=== PATIENT | female | born 1975 | race Caucasian/White ===

== ENCOUNTER 2016-08-23 20:48 | Emergency (ER) | payer OTHER | END 2016-08-23 23:05 | disposition home or self-care (01) | LOC: FER 20:48 | DX: G43.909 Migraine, unspecified, not intractable, without status migrainosus (principal); F17.210 Nicotine dependence, cigarettes, uncomplicated; Z88.1 Allergy status to other antibiotic agents | CPT/HCPCS: J1885; J2405; J2765 ==

== ENCOUNTER 2016-12-04 19:05 | Emergency (ER) | payer OTHER ==
[2016-12-04 20:26] LABS: BASOPHIL 0.1 % (0-2); EOSINOPHIL 0.4 % (0-5); HCT 39.6 % (37.0-47.0); HGB 13.5 g/dl (12.5-16.0); LYMPHOCYTE 13.4 % (15-48); MCH 31.2 pg (25.0-31.0); MCHC 34.1 g/dL (32.0-36.0); MCV 91.5 fL (78.0-100.0); MONOCYTE 3.3 % (0-12); MPV 8.7 fL (6.0-9.5); NEUTROPHIL 82.8 % (41-80); PLT 303 K/uL (150-400); RBC 4.33 M/uL (4.20-5.40); RDW 13.6 % (11.5-14.0); WBC 15.2 K/uL (4.0-10.5)
[2016-12-04 20:44] LABS: ALBUMIN 4.4 g/dL (3.5-5.0); BILIRUBIN - TOTAL 0.5 mg/dL (0.1-1.0); CREATININE 0.7 mg/dL (0.5-1.0); GLOBULIN (CALCULATION) 2.6 g/dL (2.2-4.2); POTASSIUM 3.7 mmol/L (3.5-5.1)
== END 2016-12-04 21:39 | disposition home or self-care (01) ==
LOC: FER 19:05
PROVIDERS: Nurse Practitioner Family
DX: J20.9 Acute bronchitis, unspecified (principal); F17.210 Nicotine dependence, cigarettes, uncomplicated
CPT/HCPCS: 36415; 71020; 80053; 82150; 83690; 85025; 87450; 87804; 87899; 94640; 94760; J2405; J2930

== ENCOUNTER 2021-06-13 11:56 | Emergency (ER) | payer OTHER ==
[~2021-06-13 11:56] MED LIST: PROTONIX40 MG PO; ZOFRAN4 MG PO
[2021-06-13 14:12] LABS: CORONAVIRUS 2019 SARS-COV-2 NEGATIVE (NEGATIVE); INFLUENZA A NAA NEGATIVE (NEGATIVE)
== END 2021-06-13 14:55 | disposition left against medical advice (07) ==
LOC: FER 11:56
PROVIDERS: Emergency Medicine
DX: R05.9 Cough, unspecified (principal); R09.81 Nasal congestion; Z53.21 Procedure and treatment not carried out due to patient leaving prior to being seen by health care provider; Z20.822 Contact with and (suspected) exposure to COVID-19
CPT/HCPCS: 99281; U0002

== ENCOUNTER 2021-12-13 04:27 | Emergency (ER) | payer OTHER ==
[2021-12-13] MEDS ORDERED: AMOX TR-K CLV1 EAC4 PO (05:02)
[2021-12-13] MEDS ORDERED: ONDANSETRON ODT4 MG PO (05:02)
== END 2021-12-13 05:38 | disposition home or self-care (01) ==
LOC: FER 04:27
DX: H66.002 Acute suppurative otitis media without spontaneous rupture of ear drum, left ear (principal); F17.200 Nicotine dependence, unspecified, uncomplicated; Z88.1 Allergy status to other antibiotic agents
CPT/HCPCS: 99282